=== PATIENT | female | born 1995 | race African-American/Black ===

== ENCOUNTER 2019-07-24 11:14 | Emergency (ER) | payer OTHER ==
[~2019-07-24] VITALS: Ht 154.9 cm; Wt 44.9 kg
[~2019-07-24 11:14] MED LIST: TRINATE TABLET1 TAB PO
[2019-07-24 11:34] LABS: URINE BILIRUBIN NEGATIVE (Negative); URINE BLOOD TRACE (Negative); URINE CLARITY CLEAR; URINE COLOR YELLOW; URINE GLUCOSE-RANDOM* NEGATIVE (Negative); URINE KETONES NEGATIVE (Negative); URINE NITRITE-REFLEX NEGATIVE (Negative); URINE PROTEIN (DIPSTICK) NEGATIVE (Negative); URINE SPECIFIC GRAVITY 1.025 (1.005-1.035); URINE UROBILINOGEN 0.2 E.U./dl (0.2-1.0)
[2019-07-24 11:36] LABS: URINE LEUKOCYTES-REFLEX 2+ (Negative)
[2019-07-24 11:48] LABS: ABSOLUTE NEUTROPHILS 2.4 thou/uL (1.4-8.2); BASOPHILS 0.8 % (0.0-2.0); EOSINOPHILS 3.7 % (0.0-3.0); HEMATOCRIT 37.7 % (37.0-47.0); HEMOGLOBIN 12.5 gm/dL (12.0-15.0); LYMPHOCYTES 38.9 % (24.0-44.0); MCH 29.3 pg (26.0-34.0); MCHC 33.1 g/dL (28.0-37.0); MCV 88.5 fL (80.0-100.0); MONOCYTES 6.6 % (1.0-8.0); PLATELET COUNT 224 thou/uL (150-400); RBC 4.25 mil/uL (4.20-5.00); RDW 13.6 % (10.5-14.5); WBC 4.9 thou/uL (4.0-11.0)
[2019-07-24 11:54] LABS: BACTERIA-REFLEX 1-9 Few /HPF (None Seen); CASTS None Seen /LPF (None Seen); CRYSTALS None Seen /LPF (None Seen); SQUAMOUS 0-3 Few /LPF (0-3); URINE RBC None Seen /HPF (0-2); URINE WBC-REFLEX 6-15 Few /HPF (0-5)
[2019-07-24 12:02] LABS: ALBUMIN 3.4 g/dL (3.4-5.0); CREATININE 0.7 mg/dL (0.6-1.0); POTASSIUM 3.7 mmol/L (3.5-5.1); TOTAL BILIRUBIN 0.2 mg/dL (<0.1-1.0); TOTAL PROTEIN 7.4 g/dL (6.4-8.2)
[2019-07-24 12:07] LABS: CALCIUM 9.9 mg/dL (8.5-10.1)
[2019-07-24 14:15] VITALS: BP 110/76
== END 2019-07-24 12:52 | disposition left against medical advice (07) ==
LOC: ER 11:14
PROVIDERS: Emergency Medicine
DX: N73.9 Female pelvic inflammatory disease, unspecified (principal); N39.0 Urinary tract infection, site not specified